=== PATIENT | male | born 1935 | race Caucasian/White ===

== ENCOUNTER → 2019-07-03 | Emergency (ER) | payer OTHER, BC ==
[~2019-07-03] VITALS: Ht 167.6 cm; Wt 87.1 kg
[~2019-07-03] MED LIST: ATORVASTATIN CA10 MG; BAYER THERAPY325 MG; DUTASTERIDE-TA1 EACH; GINKGO BILOBA120 MG; GLIMEPIRIDE4 MG; MULTI VITAMIN1 EACH; ONGLYZA5 MG; ZESTRIL10 M1
== END | disposition left against medical advice (07) ==
LOC: ER 13:52
DX: R05 Cough (principal)